=== PATIENT | female | born 1995 | race African-American/Black ===

== ENCOUNTER 2018-01-31 13:01 | Emergency (ER) | payer OTHER, SELFPAY ==
[2018-01-31] MEDS ORDERED: Ibuprofen 800 MG TAB ONE (15:37)
== END 2018-01-31 15:48 | disposition home or self-care (01) ==
LOC: ERS 13:01
DX: J10.1 Influenza due to other identified influenza virus with other respiratory manifestations (principal)
CPT/HCPCS: 87804; 99283

== ENCOUNTER → 2018-04-11 | Day surgery (SDC) | payer SELFPAY ==
[~2018-04-11] MED LIST: Bupivacaine/Epinephrine 0.25% 30 ML VIAL ONE; Dexamethasone 20 MG/5 ML VIAL ONE; Fentanyl 100 MCG/2 ML VIAL ONE; Glycopyrrolate 0.2 MG/ML 5 ML SYRINGE ONE; HYDROcodone/Acetaminophen 5/325 mg Tablet ONE; HYDROmorphone 0.5 MG/0.5 ML SYRINGE ONE; ISOVUE-370 76%-LOCM 1 ML ONE; Ketorolac Tromethamine 30 MG/ML VIAL ONE; Lidocaine 1% PF 5 ML VIAL ONE; Midazolam HCl 2 mg/2 ml Vial ONE; Morphine 4 MG/ML VIAL ONE; Ondansetron HCl/PF 4 MG/2 ML Vial ONE; Ondansetron ODT 4 MG TAB ONE; PROPOFOL 200 MG/20 ML VIAL ONE; Succinylcholine Chloride 20 MG/ML 10 ml SYRINGE FS ONE; cefOXitin 2 GM in Sodium Chloride 0.9% 100 ML IVPB ONE; ePHEDrine/0.9% NaCl/PF SYRINGE 50 mg/10 ml ONE
[2018-04-11 15:47] LABS: Bilirubin Negative (Negative); Blood, Urine Trace (Negative); Clarity CLOUDY (Clear); Glucose, Urine (Dipstick) Negative (Negative); Leukocyte Trace (Negative); Nitrite Positive (Negative); Protein, Urine (Dipstick) 30 mg/dL (Neg-Trace); Specific Gravity, Urine 1.028 (1.002-1.036); Urobilinogen 0.2 mg/dL (0.2-1.0)
[2018-04-11 15:49] LABS: Pathc Cast-AUWi Flag 2.47 (0-2.49); RBC/HPF 0-3 HPF (0-3)
[2018-04-11 15:54] LABS: Yeast-AUWi Flag 65.5 (0-25.0)
[2018-04-11 15:55] LABS: Pregnancy Test - Urine (BHCG) Negative (Negative); Pregu Control Background? CLEAR/WHITE (CLR/WHITE); Pregu Control Bar Appear? YES (CONTROL BAR); Specific Gravity 1.028 (1.002-1.036)
[2018-04-11 15:57] LABS: Hemoglobin 7.5 g/dL (12.0-16.0); Mean Corpuscular HGB CONC 29.9 g/dL (32.0-36.0); Mean Corpuscular Hemoglobin 16.8 pg (25.0-35.0); Mean Platelet Volume 5.3 fL (7.4-10.4); Platelet Count 332 thou/uL (130-400); RBC Distribution Width 20.7 % (11.5-14.5); White Blood Cell (WBC) Count 16.8 thou/uL (4.8-10.8)
[2018-04-11 16:06] LABS: Bacteria/HPF 1+ HPF (None Seen); Hyaline Casts/LPF 0-3 HYALINE CAST LPF (0-3 Hyaline); Renal Epithelial None Seen HPF (0-3); Transitional Epithelial 0-3 HPF (0-3); Yeast-All Forms None Seen HPF (None Seen)
[2018-04-11 16:10] LABS: ALT (SGPT) 15 U/L (8-55); AST (SGOT) 21 U/L (5-34); Albumin 4.1 g/dL (3.5-5.0); Alkaline Phosphatase 72 U/L (40-150); Anion Gap 12 mmol/L (10-20); BUN (Urea Nitrogen) 8 mg/dL (7.0-18.7); Calc. Creatinine Clearance 0 mL/min (70-130); Calcium 9.2 mg/dL (7.8-10.44); Carbon Dioxide 21 mmol/L (22-29); Chloride 103 mmol/L (98-107); Estimated GFR-MDRD Greater than 90; Globulin 3.8 g/dL (2.4-3.5); Glucose 148 mg/dL (70-105); Lipase 4 U/L (8-78); Potassium 3.4 mmol/L (3.5-5.1); Protein, Total 7.9 g/dL (6.0-8.3); Sodium 133 mmol/L (136-145)
[2018-04-11 16:22] LABS: #Lymphocytes 1.5 thou/uL (1.20-3.40); #Monocytes 0.7 thou/uL (0.11-0.59); #Neutrophils 14.6 thou/uL (1.40-6.50); %Basophils 0.1 % (0.0-1.0); %Eosinophils 0.1 % (0.0-10.0); %Lymphocytes 8.8 % (28.0-48.0); %Monocytes 4.2 % (0.0-4.0); %Neutrophils 86.8 % (31.0-61.0); Anisocytosis SLIGHT = 6-15 cells (100X) (0-5/hpf); Hypochromia SLIGHT = 6-15 cells (100X) (0-5/hpf); MDiff Complete? YES; Microcytosis MODERATE=15-30 cells (100X) (0-5/hpf); Ovalocytes SLIGHT = 2-5 cells (100X) (0-1/hpf); PLT Morphology Comment Appears Adequate; Polychromasia SLIGHT = 2-3 cells (100X) (0-2/hpf)
--- NOTE | 2018-04-11 16:57 | CT ---
ABDOMEN CT WITH CONTRAST: PELVIS CT WITH CONTRAST: HISTORY: Two and one-half days of diarrhea. Sharp abdominal pain. COMPARISON: None. TECHNIQUE: An abdomen and pelvis CT is performed with IV contrast. Oral contrast was not administered. Coronal reformatted images are submitted for interpretation. FINDINGS: ABDOMEN: The lung bases are clear. The heart size is within normal limits. No pericardial effusion . The descending thoracic aorta and abdominal aorta have a normal caliber. No periaortic fat strand ing. Unremarkable gallbladder. The portal vein is patent. The liver, spleen, pancreas, and adrenal glands have appropriate enhancement. No gastrohepatic, retrocrural, or periportal lymphadenopathy. There are scattered nonspecific, nonenlarged mesenteric lymph nodes. No mesenteric mass, free air, o r free fluid. Symmetric enhancement of the kidneys. Bilaterally, no obstructive uropathy. Limited evaluation of the alimentary canal due to lack of oral contrast. The gastric mucosa, the duo denum, and multiple normal caliber small bowel loops are noted. The ileocecal junction is normal. N ormal caliber appendix. There are a few scattered, nonspecific periappendiceal lymph nodes and minim al fat stranding at the tip of the appendix. There is fatty infiltration of the colonic mucosa, nons pecific. No evidence of colonic obstruction. Correlate for colitis. Symmetric attenuation of the psoas muscles. PELVIS: The uterus is unremarkable. There are hypodensities in the left and right adnexa, which are presumed to be ovarian follicles. No pelvic mass, lymphadenopathy, or free air. A small amount of fluid in the pelvis is noted. No lytic or blastic lesions in the osseous structures. IMPRESSION: 1. No evidence of bowel obstruction. 2. Normal caliber appendix. Minimal stranding and lymph nodes adjacent to the tip of the appendix. If there is concern for tip appendicitis, short-term follow-up imaging is recommended. 4. Fatty infiltration of the left colonic mucosa with mild adjacent stranding. Correlate for possib le ascending colitis. POS: [facility]
[2018-04-11 19:07] LABS: Bilirubin Negative (Negative); Blood, Urine Trace (Negative); Clarity CLEAR (Clear); Glucose, Urine (Dipstick) Negative (Negative); Leukocyte Negative (Negative); Nitrite Negative (Negative); Protein, Urine (Dipstick) Negative (Neg-Trace); Urobilinogen 0.2 mg/dL (0.2-1.0)
[2018-04-11 19:09] LABS: Bacteria/HPF None Seen HPF (None Seen); Hyaline Casts/LPF 0-3 HYALINE CAST LPF (0-3 Hyaline); Pathc Cast-AUWi Flag 0.72 (0-2.49); Squamous Epithelial 0-3 HPF (0-3)
[2018-04-11 19:12] LABS: Specific Gravity, Urine Greater than 1.060 (1.002-1.036)
--- NOTE | 2018-04-11 21:05 | HP ---
DATE OF CONSULTATION: 04/11/2018 ADMITTING PHYSICIAN: Dr. Jason, General Surgery. HISTORY OF PRESENT ILLNESS: Ms. Wetzel is a 22-year-old female who presented to [facility] today with a 2-day history of abdominal pain. She states that her pain started as fever and body aches 2 days ago with periumbilical abdominal pain. Over the past 2 days, the pain has intensified and has become sharp and localized mainly to the right lower quadrant. Pain is associated with diarrhea, at least 3-4 episodes over the past 2 days. There is no associated nausea or vomiting. She denies vaginal discharge or bleeding. Her last menstrual period was 03/18/2018. Clinical and diagnostic examination in the ER was consistent with appendicitis. General Surgery was consulted for consideration of surgical intervention. PAST MEDICAL HISTORY: None. PAST SURGICAL HISTORY: None. SOCIAL HISTORY: Alcohol, rarely. Tobacco, none. Drugs, none. CURRENT MEDICATIONS: None. ALLERGIES: No known drug allergies. LABORATORY DATA: CBC: WBC 16.8, RBC 4.50, hemoglobin 7.5, hematocrit 25.2, platelets 332. Chemistry: Sodium 133, potassium 3.4, chloride 103, carbon dioxide 21, BUN 8, creatinine 0.80, glucose 148, calcium 9.2, total bilirubin 1.0, AST 21, ALT 15, alkaline phosphatase 72. REVIEW OF SYSTEMS: Constitutional: The patient reports fever 2 days ago; however, that has subsided and she has not had a fever over the past 2 days since onset of abdominal pain. HEENT: Negative. Respiratory: Negative. The patient denies cough, wheezing or shortness of breath. Cardiovascular: Negative. Denies chest pain. Denies palpitations. Denies syncope. Gastrointestinal: The patient reports abdominal pain, reports diarrhea. Denies nausea, vomiting or constipation. Musculoskeletal: Reports generalized body aches 2 days ago, which subsided. Neurologic: Denies headaches, seizures. Skin: Negative. Heme/Lymphatic: Denies abnormal bleeding. PHYSICAL EXAMINATION: VITAL SIGNS: Blood pressure 118/55, pulse 77, O2 sat 95% on room air, temperature 98.3. GENERAL: Obese female lying in bed, nontoxic appearing, no acute distress. HEENT: Atraumatic, normocephalic. LUNGS: Bilateral breath sounds clear. No respiratory distress. Chest movement symmetrical. CARDIOVASCULAR: Regular rate and rhythm. Heart sounds normal. ABDOMEN: Soft, obese, tenderness in right upper quadrant, mild; right lower quadrant, severe. Rebound tenderness is present. EXTREMITIES: Within normal limits. Cap refill brisk. NEUROLOGIC: GCS 15. Awake, alert, oriented x3. SKIN: Warm, dry, normal in color. ASSESSMENT: 22-year-old female with acute appendicitis. PLAN: The patient would benefit from laparoscopic appendectomy. This has been discussed at length with her. She is in agreement with plan and wishes to proceed. Her last food intake was crackers while she was in the ER. This has been discussed with anesthesia. We will plan to proceed with appendectomy when cleared to do so by Anesthesia. 1. Admit to surgical floor. 2. N.p.o., IV fluids, IV antibiotics, IV analgesia. The patient was seen and examined with Dr. Jason, who agrees with the assessment and plan. TUAN
--- NOTE | 2018-04-12 07:56 | ADD-HP ---
ADDENDUM DATE OF CONSULTATION: 04/11/2018 HISTORY OF PRESENT ILLNESS: Ms. Wetzel is a 22-year-old black female who I evaluated in the emergency room in regards to abdominal pain. Please see the history and physical examination dictated by Dee Dee Skelton, Nurse Practitioner. I performed a full history and physical examination, reviewed all image s and laboratory studies and agree with the assessment per Ms. Skelton. Laparoscopic appendectomy wa s recommended.
--- NOTE | 2018-04-12 09:11 | OP ---
DATE OF PROCEDURE: 04/11/2018 PREOPERATIVE DIAGNOSIS: Acute appendicitis. POSTOPERATIVE DIAGNOSIS: Acute appendicitis. OPERATION PERFORMED: Laparoscopic appendectomy. SURGEON: Jeffrey Jason M.D. ANESTHESIA: General endotracheal. INDICATIONS: The patient is a 22-year-old black female. She presents with findings consistent with acute appendicitis. She is taken to the operating room at this time for a laparoscopic appendectomy . PROCEDURE IN DETAIL: Informed consent was obtained. The patient was taken to the Operating Room where general endotracheal anesthesia was obtained with the patient in the supine position. Local anesthet ic was infiltrated into the intended incision sites, and 5-mm infraumbilical incision was created. Ve ress needle was passed into the peritoneal cavity. Pneumoperitoneum was established using carbon diox erlinda up to a pressure of 15 mmHg. A 5-mm trocar port was passed through the same incision. Laparoscopi c camera was passed through this port. Under direct vision, two additional ports were placed includin g a 5-mm right subcostal port and a 10/12-mm suprapubic port. Attention was then turned to the right lower quadrant. After mobilization of bowel, there was obvious evidence of acute appendicitis. The a ppendix was gently mobilized away from the surrounding structures, and the mesoappendix was grasped. It was divided with the tripolar cautery so as to skeletonize the base of the appendix. The appendix was then divided with the Endo PRO stapler to include a small cuff of cecum. Staple lines were intact . The appendix was placed into a laparoscopic pouch and retrieved through the suprapubic port. The f ascia at this port was approximated with 0 Vicryl suture and the GraNee needle. Port was replaced, an d the right lower quadrant was inspected. Hemostasis was found to be intact, and the area was irriga kailey. Staple line was also noted to be intact. All ports and instruments were removed under direct vis ion. Pneumoperitoneum was carefully evacuated. 0.25% Marcaine with epinephrine was infiltrated into e ach port site. Skin edges were approximated with 4-0 Prolene subcuticular suture as well as Steri-Str ips and Mastisol. Band-Aid dressings were applied. There were no complications. The patient tolerated the procedure well and was taken to Recovery in stable condition. FINDINGS: The patient had early evidence of appendicitis. There was no significant separation and c ertainly no perforation. Remaining abdominal and pelvic structures were all examined and found to be without irregularity. There were no complications and no significant blood loss. The patient desi ated the procedure well.
[2018-04-13 04:21] LABS: Chlamydia by PCR Not Detected (NotDetected); GC by PCR Not Detected (NotDetected)
== END ==
LOC: ERS 15:24 → SDC 20:28
PROVIDERS: ATTEND Specialist
PROC: 0DTJ4ZZ Resection of Appendix, Percutaneous Endoscopic Approach (ICD-10-PCS; principal; 2018-04-11)
DX: Z02.9 Encounter for administrative examinations, unspecified (principal); K35.80 Unspecified acute appendicitis
CPT/HCPCS: 36415; 74177; 80053; 81003; 81015; 81025; 83690; 85025; 85060; 86850; 86900; 86901; 87086; 87480; 87491; 87510; 87591; 87660; 88304; 96361; 96374; J0694; J1100; J1170; J1885; J2001; J2250; J2270; J2405; J2704; J3010; J7050; Q0162

== ENCOUNTER 2020-04-23 07:35 | Emergency (ER) | payer SELFPAY | END 2020-04-23 08:21 | disposition home or self-care (01) | LOC: ERS 07:35 | DX: K60.2 Anal fissure, unspecified (principal); K64.4 Residual hemorrhoidal skin tags; E66.9 Obesity, unspecified | CPT/HCPCS: 99282 ==

== ENCOUNTER 2022-11-14 19:02 | Emergency (ER) | payer SELFPAY | END 2022-11-14 20:35 | disposition home or self-care (01) | LOC: ERS 19:02 | DX: R07.89 Other chest pain (principal); E66.9 Obesity, unspecified | CPT/HCPCS: 71045 ==

== ENCOUNTER 2023-01-28 19:44 | Emergency (ER) | payer SELFPAY | END 2023-01-28 21:09 | disposition home or self-care (01) | LOC: ERS 19:44 | DX: L08.9 Local infection of the skin and subcutaneous tissue, unspecified (principal); N64.51 Induration of breast | CPT/HCPCS: 99283 ==

== ENCOUNTER 2024-04-04 18:15 | Emergency (ER) | payer SELFPAY ==
[2024-04-04 22:33] LABS: #Basophils 0.03 10x3/uL (0.0-0.2); %Basophils 0.3 % (0.0-1.0); %Eosinophils 0.8 % (0.0-10.0); %Lymphocytes 36.6 % (21.0-51.0); %Monocytes 4.5 % (0.0-10.0); %Neutrophils 57.6 % (42.0-75.0); Hematocrit 25.8 % (36.0-47.0); Hemoglobin 7.1 g/dL (12.0-16.0); Mean Corpuscular HGB CONC 27.5 g/dL (32.0-36.0); Mean Corpuscular Hemoglobin 16.1 pg (27.0-31.0); Mean Corpuscular Volume 58.5 fL (78.0-98.0); Mean Platelet Volume 10.1 fL (7.4-10.4); Platelet Count 398 10x3/uL (130-400); RBC Distribution Width 22.6 % (11.5-14.5); Red Blood Cell (RBC) Count 4.41 mill/uL (4.20-5.40)
[2024-04-04 22:51] LABS: Anisocytosis SLIGHT = 6-15 cells HPF (0-5); Hypochromia SLIGHT = 6-15 cells HPF (0-5); Microcytosis MODERATE=15-30 cells HPF (0-5); Platelet Adequacy Comment Platelets Normal; Polychromasia SLIGHT = 2-3 cells HPF (0-2)
[2024-04-04 22:53] LABS: ALT (SGPT) 38 U/L (8-55); AST (SGOT) 76 U/L (5-34); Albumin 3.3 g/dL (3.5-5.0); Alkaline Phosphatase 83 U/L (40-110); Anion Gap 12 mmol/L (10-20); BUN (Urea Nitrogen) 8 mg/dL (7.0-18.7); Bilirubin, Total 0.4 mg/dL (0.2-1.2); Calc. Creatinine Clearance 0 mL/min (70-130); Calcium 9.6 mg/dL (7.8-10.44); Carbon Dioxide 26 mmol/L (22-29); Chloride 104 mmol/L (98-107); Estimated GFR 118; Glucose 211 mg/dL (70-105); Potassium 3.9 mmol/L (3.5-5.1); Protein, Total 7.3 g/dL (6.0-8.3); Sodium 138 mmol/L (136-145)
[2024-04-04 23:02] LABS: BHCG - Serum Negative (NEGATIVE); Pregs Control Background? CLEAR/WHITE (CLR/WHITE); Pregs Control Bar Appear? YES (CONTROL BAR)
== END 2024-04-04 23:43 | disposition home or self-care (01) ==
LOC: ERS 18:15
DX: N61.1 Abscess of the breast and nipple (principal); D64.9 Anemia, unspecified; E11.9 Type 2 diabetes mellitus without complications
CPT/HCPCS: 36415; 80053; 84703; 85025